=== PATIENT | female | born 1995 | race Caucasian/White ===

== ENCOUNTER → 2017-04-29 | Outpatient (CLI) | payer SELFPAY ==
--- NOTE | 2017-05-02 10:12 | RAD ---
EXAM DESCRIPTION: Knee,Right Complete CLINICAL HISTORY: 21 years,Female,GANGLION CYST COMPARISON: None FINDINGS: The right knee demonstrates no fractures, dislocations, or other acute bony abnormalities. The joint spaces are unremarkable. The soft tissues are unremarkable. No joint effusion. There are 2 sagittal orientated fissures seen in the anterior patella. I believe these are fissures and not fractures for they appear corticated. IMPRESSION: Unremarkable right knee Electronically signed by: Tre Alvarenga MD 05/02/2017 10:12 AM CDT
== END ==
LOC: RAD 09:20
PROVIDERS: ATTEND Orthopaedic Surgery
DX: M67.40 Ganglion, unspecified site (principal)